=== PATIENT | female | born 1950 | race American Indian/Alaskan Native ===

== ENCOUNTER 2017-05-20 10:33 | Inpatient (IN) | payer OTHER ==
[2017-05-20 11:29] LABS: Urine Drugs of Abuse Note Disclamer
[2017-05-20 11:42] LABS: Bilirubin,Urine NEG (Negative); Blood,Urine NEG (Negative); Ketones,Urine NEG (Negative); Leukocyte Esterase,Urine NEG (Negative); Mucus,Urine 2+ /HPF; Nitrite,Urine NEG (Negative)
--- NOTE | 2017-05-20 11:53 | Emergency Department Report ---
HPI - General Chief Complaint: Altered Mental Status Time Seen by Provider: 05/20/17 11:23 - HPI HPI: This is a 66-year-old [place] female who presents to the emergency department from alf after the patient was found unresponsive in her cell. There is some mention of seizure-like activity, however as far as we know it was unwitnessed. The patient is more awake but still altered and/or confused and therefore a poor historian. The patient had only been at the alf for one day, arriving yesterday, so there is not much past medical history known. She received 1 mg of Ativan at the alf for possible seizure. ED Past Medical Hx - Social History Smoking Status: Unknown if ever smoked Substance Use Type: Other - Medications Home Medications: Home Medications Medication Instructions Recorded Confirmed Last Taken Type Aspirin [Aspirin BABY CHEW TAB] 81 mg PO QDAY 05/20/17 05/20/17 05/19/17 History Hydrochlorothiazide 12.5 mg PO BID 05/20/17 05/20/17 05/19/17 History ED Review of Systems ROS: Stated complaint: SEIZURE Other details as noted in HPI Comment: Unobtainable due to pts medical conditions Physical Exam - Physical Exam Vital Signs: Vital Signs 05/20/17 10:45 Temperature 97.7 F Pulse Rate 74 Respiratory 21 Rate Blood Pressure 129/83 Blood Pressure 129/83 [Right] O2 Sat by Pulse 100 Oximetry Physical Exam: GENERAL: The patient is well-developed well-nourished. HENT: Normocephalic. Atraumatic. Patient has moist mucous membranes. EYES: Extraocular motions are intact. Pupils equal reactive to light bilaterally. No nystagmus. NECK: Supple. Trachea is midline. CHEST/LUNGS: Clear to auscultation. There is no respiratory distress noted. HEART/CARDIOVASCULAR: Regular. There is no tachycardia. There is no gallop rub or murmur. ABDOMEN: Abdomen is soft, nontender. Patient has normal bowel sounds. There is no abdominal distention. SKIN: Skin is warm and dry. NEURO: The patient is awake but still despite some confusion. Currently a AAO [address] but not time. Follows commands and tries to be cooperative. No slurred speech. No facial assymetry. No pronator drift. MUSCULOSKELETAL: There is no tenderness or deformity. There is no limitation range of motion. There is no evidence of acute injury. ED Course Vital Signs 05/20/17 10:45 Temperature 97.7 F Pulse Rate 74 Respiratory 21 Rate Blood Pressure 129/83 Blood Pressure 129/83 [Right] O2 Sat by Pulse 100 Oximetry ED Medical Decision Making - Lab Data Result diagrams: 05/20/17 11:47 05/20/17 11:47 - EKG Data -: EKG Interpreted by Me EKG shows normal: sinus rhythm, axis, intervals, QRS complexes (LVH), ST-T waves (T-wave inversions throughout the lateral leads) Rate: normal - EKG Data When compared to previous EKG there are: previous EKG unavailable Interpretation: other (sinus rhythm, LVH, T-wave inversions throughout the lateral leads, no ST elevation WI) - Radiology Data Radiology results: report reviewed CT HEAD WITHOUT CONTRAST: 05/20/17 10:33:00 CLINICAL: Altered mental status.. TECHNIQUE: 2.5-mm noncontrast scans. COMPARISON:None FINDINGS: The ventricles and sulci are slightly large for age.Extensive bilateral periventricular and subcortical white matter hypodensities. Bilateral chronic basal ganglia lacunar infarcts. Focal encephalomalacia in the left posterior parietal lobe. No suspicious hypodensity. No mass or mass effect. No hemorrhage, edema or extra-axial collection. The sinuses are clear. Normal orbits and soft tissues. The calvarium and skull base are intact. IMPRESSION: Chronic infarcts and extensive chronic white matter microangiopathy. No evidence of acute/subacute infarct or hemorrhage. Transcribed By: REF Dictated By: MCKAYLA PEGUERO MD Electronically Authenticated By: MCKAYLA PEGUERO MD Signed Date/Time: 05/20/17 1200 - Medical Decision Making The patient presented altered but over the ED course has become more responsive. At first she was unable to give me the year and even appeared to be confused by the question but prior to admission she is able to tell me that the year is 2017. However she still does not appear to be fully back at baseline. This all could be consistent with a seizure and a postictal state but there was no witnessed seizure activity. Nonetheless the patient was covered with a gram of Keppra. It also could be a possible CVA versus TIA. However the patient would not be a TPA candidate as she does show some improvement and confusion would be the only neurological deficit found. The patient will be admitted to the hospital for further evaluation and treatment and has been accepted for admission by the hospitalist, Natali. - Differential Diagnosis Seizure, TIA, CVA, Substance abuse Critical Care Time: No Critical care attestation.: If time is entered above; I have spent that time in minutes in the direct care of this critically ill patient, excluding procedure time. ED Disposition Clinical Impression: Unresponsive episode Altered mental status Qualifiers: Altered mental status type: unspecified Qualified Code(s): R41.82 - Altered mental status, unspecified Disposition: DC-09 OP ADMIT IP TO THIS HOSP Is pt being admited?: Yes Condition: Stable Time of Disposition: 15:49
--- NOTE | 2017-05-20 12:06 | Cat Scan Report ---
CT HEAD WITHOUT CONTRAST: 05/20/17 10:33:00 CLINICAL: Altered mental status.. TECHNIQUE: 2.5-mm noncontrast scans. COMPARISON:None FINDINGS: The ventricles and sulci are slightly large for age.Extensive bilateral periventricular and subcortical white matter hypodensities. Bilateral chronic basal ganglia lacunar infarcts. Focal encephalomalacia in the left posterior parietal lobe. No suspicious hypodensity. No mass or mass effect. No hemorrhage, edema or extra-axial collection. The sinuses are clear. Normal orbits and soft tissues. The calvarium and skull base are intact. IMPRESSION: Chronic infarcts and extensive chronic white matter microangiopathy. No evidence of acute/subacute infarct or hemorrhage.
[2017-05-20 12:25] LABS: Alanine Aminotransferase 9 units/L (7-56); Albumin 4.5 g/dL (3.9-5); Albumin/Globulin Ratio 1.1 %; Alkaline Phosphatase 57 units/L (35-129); Anion Gap 20 mmol/L; BUN/Creatinine Ratio 21; Blood Urea Nitrogen 15 mg/dL (7-17); Calcium 9.7 mg/dL (8.4-10.2); Carbon Dioxide 26 mmol/L (22-30); Chloride 99.7 mmol/L (98-107); Glucose 106 mg/dL (65-100); Sodium 142 mmol/L (137-145); Total Protein 8.6 g/dL (6.3-8.2)
[2017-05-20 12:37] LABS: Basophils % (Auto) 0.7 % (0.0-1.8); Eosinophils % (Auto) 0.2 % (0.0-4.3); Hematocrit 44.6 % (30.3-42.9); Hemoglobin 14.2 gm/dl (10.1-14.3); Mean Corpuscular HGB Conc 32 % (30-34); Mean Corpuscular Hemoglobin 27 pg (28-32); Mean Corpuscular Volume 84 fl (79-97); Platelet Count 240 K/mm3 (140-440); Red Blood Count 5.29 M/mm3 (3.65-5.03); Red Cell Distribution Width 13.6 % (13.2-15.2); White Blood Count 7.3 K/mm3 (4.5-11.0)
[2017-05-20] MEDS ORDERED: KEPPRA 1,000 MG/NS 0.75% 100ML 1,000 MG/100 ML BAG IV ONE (13:03)
[2017-05-20] MEDS ORDERED: ZOFRAN IV PRN (14:24)
[2017-05-20] MEDS ORDERED: TYLENOL PO PRN (14:25)
[2017-05-20] MEDS ORDERED: ATIVAN IV PRN (14:30)
[2017-05-20] MEDS ORDERED: NACL 0.9% 1000 ML 1,000 ML IV SCH (15:00)
--- NOTE | 2017-05-20 15:39 | History and Physical Report ---
CHIEF COMPLAINT: Change in mental status. HISTORY OF PRESENT ILLNESS: The patient is a 66-year-old female brought in from halfway after he was found unresponsive. There was a history of seizure-like activity; however, there was no definite witness to confirm that. The patient could not give any good history because of that change in mental status. There was no history of chest pain, shortness of breath, fever, nausea or vomiting prior to the unresponsiveness. The patient was brought into the Emergency Room still confused. PAST MEDICAL HISTORY: Pertinent for hypertension. There is no past medical history of any form of seizure disorder. PAST SURGICAL HISTORY: Not well defined. FAMILY HISTORY: Noncontributory. SOCIAL HISTORY: The patient is in halfway. Does not smoke, does not drink alcohol and does not use illicit drugs. MEDICATIONS: The patient is on hydrochlorothiazide 12.5 mg by mouth twice daily and aspirin 81 mg by mouth daily. ALLERGIES: There are no known drug allergies. REVIEW OF SYSTEMS: CONSTITUTIONAL: No fever, no chills. No diaphoresis. HEENT: There is no headache or sore throat. CARDIOVASCULAR SYSTEM: There is no chest pain or orthopnea. RESPIRATORY: There is no shortness of breath or cough. GASTROINTESTINAL SYSTEM: There is no nausea, no vomiting, no abdominal pain, diarrhea or constipation. NEUROLOGICAL SYSTEM: Altered mental status noted. Confusion noted. Questionable seizure activity noted. MUSCULOSKELETAL SYSTEM: There is no joint pain or swelling. DERMATOLOGICAL SYSTEM: There is no skin rash or itching. GENITOURINARY: There is no dysuria, hematuria, or flank pain. Rest of system review is normal. PHYSICAL EXAMINATION: GENERAL: At the time of exam, the patient was found to be alert, oriented to person, still confused, not in acute distress. VITAL SIGNS: Shows temperature of 97.7 degrees Fahrenheit, pulse of 74, respirations 21, blood pressure 129/83 and O2 sat of 99% on room air. HEENT: Showed pupils to be equal, round, reactive to light and accommodation. Extraocular muscles are intact. NECK: Supple with no JVD or carotid bruit. CARDIOVASCULAR SYSTEM: Show first and second heart sounds with no gallops or murmurs. RESPIRATORY: Showed good air entry on both sides of the lungs with no abnormal breath sounds. GASTROINTESTINAL SYSTEM: Shows abdomen to be full, soft, nontender with no organomegaly or rigidity. NEUROLOGICAL: Shows focal deficit. MUSCULOSKELETAL SYSTEM: Shows no joint swelling or tenderness. DERMATOLOGIC: Shows no skin rash. GENITOURINARY: Showing no costovertebral angle tenderness. PERTINENT LABORATORY AND IMAGING STUDIES: The patient has CBC done with normal white count, normal hemoglobin and slightly elevated hematocrit of 44.6. CBC differential showed elevated segmented neutrophil of 80.9%. The patient's chemistry was unremarkable. Urinalysis came back normal and unremarkable. Urine drug screen was unremarkable. IMAGING STUDIES: The patient had a CT of the head done without contrast that shows chronic infarcts and extensive chronic white matter microangiopathy with no evidence of acute/subacute infarct or hemorrhage. DIAGNOSIS: Altered mental status with questionable seizure. PLAN: The patient will be admitted to medical floor on telemetry. We will have cardiac enzymes checked q. 6 hours x 2 more levels. The patient will have MRI of the brain without contrast done today or tomorrow and will also have i bilateral carotid Doppler done today or tomorrow. The patient will be on oxygen by nasal cannula at 2 liters per minute. DVT prophylaxis will be through sequential compressive device until the result of the MRI is known. The patient will be on IV normal saline at 75 mL an hour, will be on Keppra 500 mg by mouth twice daily. The patient will also be on IV Ativan 1 mg every 2 hours as needed for seizure attack and will be on Tylenol 650 mg by mouth every fever, headache and aspirin 325 mg by mouth daily. The patient will also be on Zofran 4 mg IV every 6 hours for nausea and vomiting and will be on her home medication as shown in medication reconciliation section. The patient will have Neurology consult when available. JOB# [id number] OCN/NTS
[2017-05-20 16:59] LABS: Creatine Kinase 145 units/L (30-135); Creatine Kinase MB 1.2 ng/mL (0.0-4.0)
[2017-05-20] MEDS ORDERED: NON-FORMULARY (Hydrochlorothiazide [Hydrochlorothiazide] 12.5 MG) PO SCH (22:00)
[2017-05-20] MEDS: KEPPRA PO SCH (23:18)
[2017-05-20] MEDS: HCTZ PO SCH (23:18)
[2017-05-21 02:49] LABS: Creatine Kinase 110 units/L (30-135); Creatine Kinase MB < 1.0 ng/mL (0.0-4.0)
--- NOTE | 2017-05-21 08:35 | Progress Note ---
Assessment and Plan Assessment and plan: --Metabolic encephalopathy; multifactorial, closely monitor --Possible seizures; seizure precautions, Ativan as needed, antipeptic medications, urology consultation, negative workup --Possible TIA; neuro workup is in progress, physical therapy occupational therapy --History of CVA in the past[reported by the patient] supportive care and physical therapy as needed -- DVT prophylaxis with Lovenox If neuro workup is negative and patient is stable, can be discharged home tomorrow History Interval history: Patient seen and examined medical records reviewed Admitted with questionable seizure, no new seizure episode Alert awake oriented 3 Vital signs are stable Neuro workup is in progress Hospitalist Physical - Constitutional Vitals: Temp Pulse Resp BP Pulse Ox 98.3 F 82 20 141/85 96 05/21/17 06:05 05/21/17 06:05 05/21/17 06:05 05/21/17 06:05 05/21/17 06:05 General appearance: Present: no acute distress, well-nourished - EENT Eyes: Present: PERRL, EOM intact - Neck Neck: Present: supple, normal ROM - Respiratory Respiratory effort: normal Respiratory: negative: diminished, rales, rhonchi, wheezing - Cardiovascular Rhythm: regular Heart Sounds: Present: S1 & S2 - Extremities Extremities: no ischemia, No edema - Abdominal General gastrointestinal: soft, non-tender, non-distended, normal bowel sounds - Integumentary Integumentary: Present: clear, warm - Psychiatric Psychiatric: appropriate mood/affect, cooperative - Neurologic Neurologic: CNII-XII intact, moves all extremities Results - Labs CBC & Chem 7: 05/20/17 11:47 05/20/17 11:47 Labs: Laboratory Last Values WBC 7.3 K/mm3 (4.5-11.0) 05/20/17 11:47 RBC 5.29 M/mm3 (3.65-5.03) H 05/20/17 11:47 Hgb 14.2 gm/dl (10.1-14.3) 05/20/17 11:47 Hct 44.6 % (30.3-42.9) H 05/20/17 11:47 MCV 84 fl (79-97) 05/20/17 11:47 MCH 27 pg (28-32) L 05/20/17 11:47 MCHC 32 % (30-34) 05/20/17 11:47 RDW 13.6 % (13.2-15.2) 05/20/17 11:47 Plt Count 240 K/mm3 (140-440) 05/20/17 11:47 Lymph % (Auto) 15.0 % (13.4-35.0) 05/20/17 11:47 [place] % (Auto) 3.2 % (0.0-7.3) 05/20/17 11:47 Eos % (Auto) 0.2 % (0.0-4.3) 05/20/17 11:47 Baso % (Auto) 0.7 % (0.0-1.8) 05/20/17 11:47 Lymph # 1.1 K/mm3 (1.2-5.4) L 05/20/17 11:47 [place] # 0.2 K/mm3 (0.0-0.8) 05/20/17 11:47 Eos # 0.0 K/mm3 (0.0-0.4) 05/20/17 11:47 Baso # 0.1 K/mm3 (0.0-0.1) 05/20/17 11:47 Seg Neutrophils % 80.9 % (40.0-70.0) H 05/20/17 11:47 Seg Neutrophils # 5.9 K/mm3 (1.8-7.7) 05/20/17 11:47 Sodium 142 mmol/L (137-145) 05/20/17 11:47 Potassium 4.0 mmol/L (3.6-5.0) 05/20/17 11:47 Chloride 99.7 mmol/L (98-107) 05/20/17 11:47 Carbon Dioxide 26 mmol/L (22-30) 05/20/17 11:47 Anion Gap 20 mmol/L 05/20/17 11:47 BUN 15 mg/dL (7-17) 05/20/17 11:47 Creatinine 0.7 mg/dL (0.7-1.2) 05/20/17 11:47 Estimated GFR > 60 ml/min 05/20/17 11:47 BUN/Creatinine Ratio 21 % 05/20/17 11:47 Glucose 106 mg/dL (65-100) H 05/20/17 11:47 Lactic Acid 1.90 mmol/L (0.7-2.0) 05/20/17 16:11 Calcium 9.7 mg/dL (8.4-10.2) 05/20/17 11:47 Magnesium 2.30 mg/dL (1.7-2.3) 05/20/17 11:47 Total Bilirubin 0.70 mg/dL (0.1-1.2) 05/20/17 11:47 AST 14 units/L (5-40) 05/20/17 11:47 ALT 9 units/L (7-56) 05/20/17 11:47 Alkaline Phosphatase 57 units/L (35-129) 05/20/17 11:47 Total Creatine Kinase 110 units/L (30-135) 05/21/17 02:03 CK-MB (CK-2) < 1.0 ng/mL (0.0-4.0) 05/21/17 02:03 CK-MB (CK-2) Rel Index 0.9 (0-4) 05/21/17 02:03 Troponin T < 0.010 ng/mL (0.00-0.029) 05/21/17 02:03 Total Protein 8.6 g/dL (6.3-8.2) H 05/20/17 11:47 Albumin 4.5 g/dL (3.9-5) 05/20/17 11:47 Albumin/Globulin Ratio 1.1 % 05/20/17 11:47 TSH 0.502 mlU/mL (0.270-4.200) 05/20/17 11:47 Urine Color Yellow (Yellow) 05/20/17 11:21 Urine Turbidity Clear (Clear) 05/20/17 11:21 Urine pH 5.0 (5.0-7.0) 05/20/17 11:21 Ur Specific [place] 1.026 (1.003-1.030) 05/20/17 11:21 Urine Protein 100 mg/dl mg/dL (Negative) 05/20/17 11:21 Urine Glucose (UA) Neg mg/dL (Negative) 05/20/17 11:21 Urine Ketones Neg mg/dL (Negative) 05/20/17 11:21 Urine Blood Neg (Negative) 05/20/17 11:21 Urine Nitrite Neg (Negative) 05/20/17 11:21 Urine Bilirubin Neg (Negative) 05/20/17 11:21 Urine Urobilinogen 2.0 mg/dL (<2.0) 05/20/17 11:21 Ur Leukocyte Esterase Neg (Negative) 05/20/17 11:21 Urine WBC (Auto) 1.0 /HPF (0.0-6.0) 05/20/17 11:21 Urine RBC (Auto) 1.0 /HPF (0.0-6.0) 05/20/17 11:21 U Epithel Cells (Auto) < 1.0 /HPF (0-13.0) 05/20/17 11:21 Urine Mucus 2+ /HPF 05/20/17 11:21 Salicylates < 0.3 mg/dL (2.8-20.0) L 05/20/17 11:47 Urine Opiates Screen Presumptive negative 05/20/17 11:21 Urine Methadone Screen Presumptive negative 05/20/17 11:21 Acetaminophen < 15.0 ug/mL (10.0-30.0) 05/20/17 11:47 Ur Barbiturates Screen Presumptive negative 05/20/17 11:21 Ur Phencyclidine Scrn Presumptive negative 05/20/17 11:21 Ur Amphetamines Screen Presumptive negative 05/20/17 11:21 U Benzodiazepines Scrn Presumptive negative 05/20/17 11:21 Urine Cocaine Screen Presumptive negative 05/20/17 11:21 U Marijuana (THC) Screen Presumptive negative 05/20/17 11:21 Drugs of Abuse Note Disclamer 05/20/17 11:21 Plasma/Serum Alcohol < 0.01 gm% (0-0.07) 05/20/17 11:47
[2017-05-21] MEDS: HCTZ PO SCH ×2 (10:56→21:33)
[2017-05-21] MEDS: KEPPRA PO SCH ×2 (10:56→21:33)
[2017-05-21] MEDS: ASPIRIN PO SCH (10:56)
--- NOTE | 2017-05-21 13:39 | Consultation ---
History of Present Illness Consult date: 05/21/17 History of present illness: went over the CT of the head and shows extensive white matter changes and old lacunar strokes this certainly may well have been seizures agree with work up advise check ECHO AND cAROTID U/S TO R/O tia Medications and Allergies Allergies Allergy/AdvReac Type Severity Reaction Status Date / Time shellfish derived Allergy Unknown Verified 05/21/17 01:01 Home Medications Medication Instructions Recorded Confirmed Last Taken Type Aspirin [Aspirin BABY CHEW TAB] 81 mg PO QDAY 05/20/17 05/20/17 05/19/17 History Hydrochlorothiazide 12.5 mg PO BID 05/20/17 05/20/17 05/19/17 History Active Meds: Active Medications Acetaminophen (Tylenol) 650 mg PO Q4H PRN PRN Reason: For Pain/Fever/Headache Aspirin (Aspirin) 325 mg PO QDAY [facility] Last Admin: 05/21/17 10:56 Dose: 325 mg Hydrochlorothiazide (Hctz) 12.5 mg PO BID [facility] Last Admin: 05/21/17 10:56 Dose: 12.5 mg Sodium Chloride (Nacl 0.9% 1000 Ml) 1,000 mls @ 75 mls/hr IV DIRECT [facility] Last Admin: 05/20/17 19:00 Dose: 75 mls/hr Levetiracetam (Keppra) 500 mg PO BID [facility] Last Admin: 05/21/17 10:56 Dose: 500 mg Lorazepam (Ativan) 1 mg IV Q2H PRN PRN Reason: Seizures Ondansetron HCl (Zofran) 4 mg IV Q6H PRN PRN Reason: Nausea And Vomiting Physical Examination - Vital Signs Vital Signs: Vital Signs Temp Pulse Resp BP Pulse Ox 97.7 F 74 14 129/83 100 05/20/17 10:45 05/20/17 10:45 05/20/17 10:45 05/20/17 10:45 05/20/17 10:45 Results - Laboratory Findings CBC and BMP: 05/20/17 11:47 05/20/17 11:47 Abnormal Lab Findings: Abnormal Labs 05/20/17 05/20/17 05/20/17 11:47 11:47 11:47 RBC 5.29 H Hct 44.6 H MCH 27 L Lymph # 1.1 L Seg Neutrophils % 80.9 H Glucose 106 H Total Creatine Kinase Total Protein 8.6 H Salicylates < 0.3 L 05/20/17 16:11 RBC Hct MCH Lymph # Seg Neutrophils % Glucose Total Creatine Kinase 145 H Total Protein Salicylates
[2017-05-22] MEDS: HCTZ PO SCH ×2 (09:33→22:06)
[2017-05-22] MEDS: KEPPRA PO SCH ×2 (09:33→22:06)
[2017-05-22] MEDS: ASPIRIN PO SCH (09:33)
--- NOTE | 2017-05-22 11:01 | Magnetic Resonance Report ---
MRI BRAIN WITHOUT CONTRAST: 05/22/17 CLINICAL: Altered mental status. TECHNIQUE: Axial diffusion, T1, T2, FLAIR, gradient echo T2*, and sagittal T1 sequences on a 1.5 Genoveva magnet. FINDINGS: The ventricles and sulci are enlarged for age. Left posterior parietal encephalomalacia. No restricted diffusion. Extensive bilateral periventricular and subcortical white matter hyperintensities on FLAIR and T2. Several bilateral chronic basal ganglia lacunar infarcts. No mass or mass effect. No hemorrhage, edema or extra-axial collection. Normal pituitary and optic chiasm. The brainstem and cerebellum are normal. Intact vascular flow voids. Normal sinuses. The orbits, and soft tissues are normal. Normal calvarium and skull base. IMPRESSION: No evidence of acute/subacute infarct or hemorrhage. Chronic left posterior parietal infarct and bilateral chronic basal ganglia lacunar infarcts. Global cortical atrophy and extensive chronic white matter micro-angiopathy.
--- NOTE | 2017-05-22 11:43 | Progress Note ---
Assessment and Plan Assessment and plan: Patient is a 66 years old with past medical history of seizure , hypertension, recurrent UTI and schizophrenia who presents to the emergency department for altered mental status and agitation. In the Emergency Department patient found to have septic due to UTI. Acute encephalopathy Improved patient currently sleepy and lethargic but she knows she is in the hospital. Most likely due to schizophrenia VS urinary tract infection Ct of the head negative treat underline cause Sepsis due to urinary tract infection Blood cultures collected prior to antibiotic Follow cultures Continue empiric IV Rocephin Continue IV fluid hydration Supportive care Acute pyelonephritis Renal US ordered Urine culture ordered Continue empiric IV Rocephin IV fluid hydration Leukocytosis Secondary to Acute pyelonephritis Closely monitor Seizure disordered continue home anticonvulsants Acute schizophrenia Patient agitated; on 10:13 and sitter at bedside Mental health consult DVT prophylaxis Lovenox History Interval history: Patients very sleep and lethargic, but denies having pain or discomfort. Labs and nursing labs reviewed. Hospitalist Physical - Constitutional Vitals: Temp Pulse Resp BP Pulse Ox 98.1 F 73 16 140/90 96 05/22/17 04:52 05/22/17 04:52 05/22/17 04:52 05/22/17 04:52 05/22/17 08:28 General appearance: Present: no acute distress, well-nourished, other (confused ) - EENT Eyes: Present: PERRL ENT: hearing intact - Neck Neck: Present: supple - Respiratory Respiratory effort: normal Respiratory: bilateral: CTA - Cardiovascular Rhythm: regular Heart Sounds: Present: S1 & S2 - Abdominal General gastrointestinal: soft, non-tender - Integumentary Integumentary: Present: clear, warm, dry - Psychiatric Psychiatric: other (Sleepy and very lethargic ) - Neurologic Neurologic: moves all extremities - Allied Health Allied health notes reviewed: nursing Results - Labs CBC & Chem 7: 05/20/17 11:47 05/20/17 11:47 Labs: Laboratory Last Values WBC 7.3 K/mm3 (4.5-11.0) 05/20/17 11:47 RBC 5.29 M/mm3 (3.65-5.03) H 05/20/17 11:47 Hgb 14.2 gm/dl (10.1-14.3) 05/20/17 11:47 Hct 44.6 % (30.3-42.9) H 05/20/17 11:47 MCV 84 fl (79-97) 05/20/17 11:47 MCH 27 pg (28-32) L 05/20/17 11:47 MCHC 32 % (30-34) 05/20/17 11:47 RDW 13.6 % (13.2-15.2) 05/20/17 11:47 Plt Count 240 K/mm3 (140-440) 05/20/17 11:47 Lymph % (Auto) 15.0 % (13.4-35.0) 05/20/17 11:47 [place] % (Auto) 3.2 % (0.0-7.3) 05/20/17 11:47 Eos % (Auto) 0.2 % (0.0-4.3) 05/20/17 11:47 Baso % (Auto) 0.7 % (0.0-1.8) 05/20/17 11:47 Lymph # 1.1 K/mm3 (1.2-5.4) L 05/20/17 11:47 [place] # 0.2 K/mm3 (0.0-0.8) 05/20/17 11:47 Eos # 0.0 K/mm3 (0.0-0.4) 05/20/17 11:47 Baso # 0.1 K/mm3 (0.0-0.1) 05/20/17 11:47 Seg Neutrophils % 80.9 % (40.0-70.0) H 05/20/17 11:47 Seg Neutrophils # 5.9 K/mm3 (1.8-7.7) 05/20/17 11:47 Sodium 142 mmol/L (137-145) 05/20/17 11:47 Potassium 4.0 mmol/L (3.6-5.0) 05/20/17 11:47 Chloride 99.7 mmol/L (98-107) 05/20/17 11:47 Carbon Dioxide 26 mmol/L (22-30) 05/20/17 11:47 Anion Gap 20 mmol/L 05/20/17 11:47 BUN 15 mg/dL (7-17) 05/20/17 11:47 Creatinine 0.7 mg/dL (0.7-1.2) 05/20/17 11:47 Estimated GFR > 60 ml/min 05/20/17 11:47 BUN/Creatinine Ratio 21 % 05/20/17 11:47 Glucose 106 mg/dL (65-100) H 05/20/17 11:47 POC Glucose 94 (70-105) 05/22/17 11:38 Lactic Acid 1.90 mmol/L (0.7-2.0) 05/20/17 16:11 Calcium 9.7 mg/dL (8.4-10.2) 05/20/17 11:47 Magnesium 2.30 mg/dL (1.7-2.3) 05/20/17 11:47 Total Bilirubin 0.70 mg/dL (0.1-1.2) 05/20/17 11:47 AST 14 units/L (5-40) 05/20/17 11:47 ALT 9 units/L (7-56) 05/20/17 11:47 Alkaline Phosphatase 57 units/L (35-129) 05/20/17 11:47 Total Creatine Kinase 110 units/L (30-135) 05/21/17 02:03 CK-MB (CK-2) < 1.0 ng/mL (0.0-4.0) 05/21/17 02:03 CK-MB (CK-2) Rel Index 0.9 (0-4) 05/21/17 02:03 Troponin T < 0.010 ng/mL (0.00-0.029) 05/21/17 02:03 Total Protein 8.6 g/dL (6.3-8.2) H 05/20/17 11:47 Albumin 4.5 g/dL (3.9-5) 05/20/17 11:47 Albumin/Globulin Ratio 1.1 % 05/20/17 11:47 TSH 0.502 mlU/mL (0.270-4.200) 05/20/17 11:47 Urine Color Yellow (Yellow) 05/20/17 11:21 Urine Turbidity Clear (Clear) 05/20/17 11:21 Urine pH 5.0 (5.0-7.0) 05/20/17 11:21 Ur Specific [place] 1.026 (1.003-1.030) 05/20/17 11:21 Urine Protein 100 mg/dl mg/dL (Negative) 05/20/17 11:21 Urine Glucose (UA) Neg mg/dL (Negative) 05/20/17 11:21 Urine Ketones Neg mg/dL (Negative) 05/20/17 11:21 Urine Blood Neg (Negative) 05/20/17 11:21 Urine Nitrite Neg (Negative) 05/20/17 11:21 Urine Bilirubin Neg (Negative) 05/20/17 11:21 Urine Urobilinogen 2.0 mg/dL (<2.0) 05/20/17 11:21 Ur Leukocyte Esterase Neg (Negative) 05/20/17 11:21 Urine WBC (Auto) 1.0 /HPF (0.0-6.0) 05/20/17 11:21 Urine RBC (Auto) 1.0 /HPF (0.0-6.0) 05/20/17 11:21 U Epithel Cells (Auto) < 1.0 /HPF (0-13.0) 05/20/17 11:21 Urine Mucus 2+ /HPF 05/20/17 11:21 Salicylates < 0.3 mg/dL (2.8-20.0) L 05/20/17 11:47 Urine Opiates Screen Presumptive negative 05/20/17 11:21 Urine Methadone Screen Presumptive negative 05/20/17 11:21 Acetaminophen < 15.0 ug/mL (10.0-30.0) 05/20/17 11:47 Ur Barbiturates Screen Presumptive negative 05/20/17 11:21 Ur Phencyclidine Scrn Presumptive negative 05/20/17 11:21 Ur Amphetamines Screen Presumptive negative 05/20/17 11:21 U Benzodiazepines Scrn Presumptive negative 05/20/17 11:21 Urine Cocaine Screen Presumptive negative 05/20/17 11:21 U Marijuana (THC) Screen Presumptive negative 05/20/17 11:21 Drugs of Abuse Note Disclamer 05/20/17 11:21 Plasma/Serum Alcohol < 0.01 gm% (0-0.07) 05/20/17 11:47
--- NOTE | 2017-05-22 17:02 | Progress Note ---
Assessment and Plan Assessment and plan: -- seizures; seizure precautions, Ativan as needed, increase Keppra 1000 mg twice a day, neurology following negative MRI --Metabolic encephalopathy; multifactorial, resolved --Possible TIA; neuro workup negative so far, --History of CVA in the past[reported by the patient] supportive care and physical therapy as needed -- DVT prophylaxis with Lovenox If neuro workup is negative and patient is stable, can be discharged home tomorrow Possible Discharge tomorrow if stable History Interval history: Patient seen and examined Had an episode of witnessed seizure in MRI unit Now patient is alert and awake Hospitalist Physical - Constitutional Vitals: Temp Pulse Resp BP Pulse Ox 98.1 F 73 16 140/90 96 05/22/17 04:52 05/22/17 04:52 05/22/17 04:52 05/22/17 04:52 05/22/17 08:28 General appearance: Present: no acute distress, well-nourished, other (confused ) - EENT Eyes: Present: PERRL, EOM intact - Neck Neck: Present: supple, normal ROM - Respiratory Respiratory effort: normal Respiratory: bilateral: diminished, negative: rales, rhonchi, wheezing - Cardiovascular Rhythm: regular Heart Sounds: Present: S1 & S2 - Extremities Extremities: no ischemia, No edema - Abdominal General gastrointestinal: soft, non-tender, non-distended, normal bowel sounds - Integumentary Integumentary: Present: clear, warm - Psychiatric Psychiatric: appropriate mood/affect, cooperative - Neurologic Neurologic: CNII-XII intact, moves all extremities Results - Labs CBC & Chem 7: 05/20/17 11:47 05/20/17 11:47 Labs: Laboratory Last Values WBC 7.3 K/mm3 (4.5-11.0) 05/20/17 11:47 RBC 5.29 M/mm3 (3.65-5.03) H 05/20/17 11:47 Hgb 14.2 gm/dl (10.1-14.3) 05/20/17 11:47 Hct 44.6 % (30.3-42.9) H 05/20/17 11:47 MCV 84 fl (79-97) 05/20/17 11:47 MCH 27 pg (28-32) L 05/20/17 11:47 MCHC 32 % (30-34) 05/20/17 11:47 RDW 13.6 % (13.2-15.2) 05/20/17 11:47 Plt Count 240 K/mm3 (140-440) 05/20/17 11:47 Lymph % (Auto) 15.0 % (13.4-35.0) 05/20/17 11:47 Barbour % (Auto) 3.2 % (0.0-7.3) 05/20/17 11:47 Eos % (Auto) 0.2 % (0.0-4.3) 05/20/17 11:47 Baso % (Auto) 0.7 % (0.0-1.8) 05/20/17 11:47 Lymph # 1.1 K/mm3 (1.2-5.4) L 05/20/17 11:47 Barbour # 0.2 K/mm3 (0.0-0.8) 05/20/17 11:47 Eos # 0.0 K/mm3 (0.0-0.4) 05/20/17 11:47 Baso # 0.1 K/mm3 (0.0-0.1) 05/20/17 11:47 Seg Neutrophils % 80.9 % (40.0-70.0) H 05/20/17 11:47 Seg Neutrophils # 5.9 K/mm3 (1.8-7.7) 05/20/17 11:47 Sodium 142 mmol/L (137-145) 05/20/17 11:47 Potassium 4.0 mmol/L (3.6-5.0) 05/20/17 11:47 Chloride 99.7 mmol/L (98-107) 05/20/17 11:47 Carbon Dioxide 26 mmol/L (22-30) 05/20/17 11:47 Anion Gap 20 mmol/L 05/20/17 11:47 BUN 15 mg/dL (7-17) 05/20/17 11:47 Creatinine 0.7 mg/dL (0.7-1.2) 05/20/17 11:47 Estimated GFR > 60 ml/min 05/20/17 11:47 BUN/Creatinine Ratio 21 % 05/20/17 11:47 Glucose 106 mg/dL (65-100) H 05/20/17 11:47 POC Glucose 94 (70-105) 05/22/17 11:38 Lactic Acid 1.90 mmol/L (0.7-2.0) 05/20/17 16:11 Calcium 9.7 mg/dL (8.4-10.2) 05/20/17 11:47 Magnesium 2.30 mg/dL (1.7-2.3) 05/20/17 11:47 Total Bilirubin 0.70 mg/dL (0.1-1.2) 05/20/17 11:47 AST 14 units/L (5-40) 05/20/17 11:47 ALT 9 units/L (7-56) 05/20/17 11:47 Alkaline Phosphatase 57 units/L (35-129) 05/20/17 11:47 Total Creatine Kinase 110 units/L (30-135) 05/21/17 02:03 CK-MB (CK-2) < 1.0 ng/mL (0.0-4.0) 05/21/17 02:03 CK-MB (CK-2) Rel Index 0.9 (0-4) 05/21/17 02:03 Troponin T < 0.010 ng/mL (0.00-0.029) 05/21/17 02:03 Total Protein 8.6 g/dL (6.3-8.2) H 05/20/17 11:47 Albumin 4.5 g/dL (3.9-5) 05/20/17 11:47 Albumin/Globulin Ratio 1.1 % 05/20/17 11:47 TSH 0.502 mlU/mL (0.270-4.200) 05/20/17 11:47 Urine Color Yellow (Yellow) 05/20/17 11:21 Urine Turbidity Clear (Clear) 05/20/17 11:21 Urine pH 5.0 (5.0-7.0) 05/20/17 11:21 Ur Specific Nicholls 1.026 (1.003-1.030) 05/20/17 11:21 Urine Protein 100 mg/dl mg/dL (Negative) 05/20/17 11:21 Urine Glucose (UA) Neg mg/dL (Negative) 05/20/17 11:21 Urine Ketones Neg mg/dL (Negative) 05/20/17 11:21 Urine Blood Neg (Negative) 05/20/17 11:21 Urine Nitrite Neg (Negative) 05/20/17 11:21 Urine Bilirubin Neg (Negative) 05/20/17 11:21 Urine Urobilinogen 2.0 mg/dL (<2.0) 05/20/17 11:21 Ur Leukocyte Esterase Neg (Negative) 05/20/17 11:21 Urine WBC (Auto) 1.0 /HPF (0.0-6.0) 05/20/17 11:21 Urine RBC (Auto) 1.0 /HPF (0.0-6.0) 05/20/17 11:21 U Epithel Cells (Auto) < 1.0 /HPF (0-13.0) 05/20/17 11:21 Urine Mucus 2+ /HPF 05/20/17 11:21 Salicylates < 0.3 mg/dL (2.8-20.0) L 05/20/17 11:47 Urine Opiates Screen Presumptive negative 05/20/17 11:21 Urine Methadone Screen Presumptive negative 05/20/17 11:21 Acetaminophen < 15.0 ug/mL (10.0-30.0) 05/20/17 11:47 Ur Barbiturates Screen Presumptive negative 05/20/17 11:21 Ur Phencyclidine Scrn Presumptive negative 05/20/17 11:21 Ur Amphetamines Screen Presumptive negative 05/20/17 11:21 U Benzodiazepines Scrn Presumptive negative 05/20/17 11:21 Urine Cocaine Screen Presumptive negative 05/20/17 11:21 U Marijuana (THC) Screen Presumptive negative 05/20/17 11:21 Drugs of Abuse Note Disclamer 05/20/17 11:21 Plasma/Serum Alcohol < 0.01 gm% (0-0.07) 05/20/17 11:47
[2017-05-23] MEDS: KEPPRA PO SCH (09:59)
[2017-05-23] MEDS: HCTZ PO SCH (09:59)
[2017-05-23] MEDS: ASPIRIN PO SCH (09:59)
--- NOTE | 2017-05-23 11:19 | Consultation ---
History of Present Illness Consult date: 05/23/17 History of present illness: patient seen and the BP's coming down.... saw the old stroke on MRI but no new stroke this explained to the patient Medications and Allergies Allergies Allergy/AdvReac Type Severity Reaction Status Date / Time shellfish derived Allergy Unknown Verified 05/21/17 01:01 Home Medications Medication Instructions Recorded Confirmed Last Taken Type Aspirin [Aspirin BABY CHEW TAB] 81 mg PO QDAY 05/20/17 05/20/17 05/19/17 History Hydrochlorothiazide 12.5 mg PO BID 05/20/17 05/20/17 05/19/17 History Active Meds: Active Medications Acetaminophen (Tylenol) 650 mg PO Q4H PRN PRN Reason: For Pain/Fever/Headache Last Admin: 05/21/17 20:33 Dose: 650 mg Aspirin (Aspirin) 325 mg PO QDAY [facility] Last Admin: 05/23/17 09:59 Dose: 325 mg Hydrochlorothiazide (Hctz) 12.5 mg PO BID [facility] Last Admin: 05/23/17 09:59 Dose: 12.5 mg Sodium Chloride (Nacl 0.9% 1000 Ml) 1,000 mls @ 75 mls/hr IV DIRECT [facility] Last Admin: 05/20/17 19:00 Dose: 75 mls/hr Levetiracetam (Keppra) 1,000 mg PO BID [facility] Last Admin: 05/23/17 09:59 Dose: 1,000 mg Lorazepam (Ativan) 1 mg IV Q2H PRN PRN Reason: Seizures Ondansetron HCl (Zofran) 4 mg IV Q6H PRN PRN Reason: Nausea And Vomiting Physical Examination - Vital Signs Vital Signs: Vital Signs Temp Pulse Resp BP Pulse Ox 97.7 F 74 14 129/83 100 05/20/17 10:45 05/20/17 10:45 05/20/17 10:45 05/20/17 10:45 05/20/17 10:45 Results - Laboratory Findings CBC and BMP: 05/20/17 11:47 05/20/17 11:47 Abnormal Lab Findings: Abnormal Labs 05/20/17 05/20/17 05/20/17 11:47 11:47 11:47 RBC 5.29 H Hct 44.6 H MCH 27 L Lymph # 1.1 L Seg Neutrophils % 80.9 H Glucose 106 H Total Creatine Kinase Total Protein 8.6 H Salicylates < 0.3 L 05/20/17 16:11 RBC Hct MCH Lymph # Seg Neutrophils % Glucose Total Creatine Kinase 145 H Total Protein Salicylates
--- NOTE | 2017-05-23 11:27 | Discharge Summary ---
Providers - Providers Date of Admission: 05/20/17 14:19 Date of discharge: 05/23/17 Attending physician: RADHA KNAPP 05/21/17 08:37 Consult to Physician [CONS] Routine Consulting Provider: MCKAYLA PISANO Reason For Exam: seizures Place consult to:: Dr. Pisano Notified:: Janet BAXTER Phone number called:: Was contact made?: Yes If yes, spoke with:: Michelle-Office Time called:: 09:05 Primary care physician: [employer] Hospitalization Reason for admission: Seizures Condition: Stable Pertinent studies: CT head without contrast MRI brain Carotid Doppler Hospital course: 66 yr old female pt was brought by the law enforcement officers with history of altered level of consciousness and questionable seizures activity Patient was admitted to the hospital symptomatically managed placed on seizure precautions started on antiepileptic medications, underwent extensive new to workup CT head without contrast, carotid Doppler, MRA of the brain Patient had one more episode of seizure during MRI, received Keppra and Ativan as needed throughout the hospital stay Symptoms significantly improved Neurology has evaluated the patient, agreed with the current management Today she is comfortable in bed no new complaints, vital signs are stable, patient is confused sometimes and talking rationally probably her baseline Cleared by neurology for discharge back to the care law enforcement officers, advised to follow with primary care physician, neurologist prior to scheduled At The time of discharge patient is hemodynamically and clinically stable Discharge diagnosis; -- seizures; seizure precautions, no driving or operating heavy machinery until cleared by PMD --Metabolic encephalopathy; multifactorial, resolved --Possible TIA; neuro workup negative so far, --History of CVA in the past Disposition: [id number]/[place]-[address] COURT/[employer]W [employer] Time spent for discharge: 32 Core Measure Documentation - Palliative Care Palliative Care/ Comfort Measures: Not Applicable - Core Measures Any of the following diagnoses?: none Exam - Constitutional Vitals: Temp Pulse Resp BP Pulse Ox 98.5 F 73 18 156/98 98 05/23/17 08:13 05/23/17 08:13 05/23/17 08:13 05/23/17 08:13 05/23/17 08:13 General appearance: Present: no acute distress, well-nourished - EENT Eyes: Present: PERRL, EOM intact - Neck Neck: Present: supple, normal ROM - Respiratory Respiratory effort: normal Respiratory: negative: rales, rhonchi, wheezing - Cardiovascular Rhythm: regular Heart Sounds: Present: S1 & S2 - Extremities Extremities: no ischemia, No edema - Abdominal General gastrointestinal: Present: soft, non-tender, non-distended, normal bowel sounds - Integumentary Integumentary: Present: clear - Musculoskeletal Musculoskeletal: strength equal bilaterally - Psychiatric Psychiatric: appropriate mood/affect - Neurologic Neurologic: moves all extremities Plan Activity: advance as tolerated, no driving until cleared by PCP, fall precautions, other (seizure precautions) Diet: regular Additional Instructions: If you have new episodes of seizure, go to emergency room immediately. No driving, no operating heavy machinery until cleared by primary care physician/neurology Follow up with: [facility] [Provider Group] - 3 Days PRIMARY CAREMD [Primary Care Provider] - 3-5 Days MCKAYLA PISANO MD [Staff Physician] - 7 Days Prescriptions: levETIRAcetam [Keppra TAB] 1,000 mg PO BID #60 tablet
--- NOTE | 2017-05-23 12:02 | Consultation ---
History of Present Illness Consult date: 05/23/17 History of present illness: I have cleared the patient for discharge the stroke is chronic and nothing acute likely had seizure can be discharged on keppra explained the above to the patient she has severe aphasia so that communication is problem Medications and Allergies Allergies Allergy/AdvReac Type Severity Reaction Status Date / Time shellfish derived Allergy Unknown Verified 05/21/17 01:01 Home Medications Medication Instructions Recorded Confirmed Last Taken Type Aspirin [Aspirin BABY CHEW TAB] 81 mg PO QDAY 05/20/17 05/20/17 05/19/17 History Hydrochlorothiazide 12.5 mg PO BID 05/20/17 05/20/17 05/19/17 History levETIRAcetam [Keppra TAB] 1,000 mg PO BID #60 tablet 05/23/17 Unknown Rx Active Meds: Active Medications Acetaminophen (Tylenol) 650 mg PO Q4H PRN PRN Reason: For Pain/Fever/Headache Last Admin: 05/21/17 20:33 Dose: 650 mg Aspirin (Aspirin) 325 mg PO QDAY [facility] Last Admin: 05/23/17 09:59 Dose: 325 mg Hydrochlorothiazide (Hctz) 12.5 mg PO BID [facility] Last Admin: 05/23/17 09:59 Dose: 12.5 mg Sodium Chloride (Nacl 0.9% 1000 Ml) 1,000 mls @ 75 mls/hr IV DIRECT [facility] Last Admin: 05/20/17 19:00 Dose: 75 mls/hr Levetiracetam (Keppra) 1,000 mg PO BID [facility] Last Admin: 05/23/17 09:59 Dose: 1,000 mg Lorazepam (Ativan) 1 mg IV Q2H PRN PRN Reason: Seizures Ondansetron HCl (Zofran) 4 mg IV Q6H PRN PRN Reason: Nausea And Vomiting Physical Examination - Vital Signs Vital Signs: Vital Signs Temp Pulse Resp BP Pulse Ox 97.7 F 74 14 129/83 100 05/20/17 10:45 05/20/17 10:45 05/20/17 10:45 05/20/17 10:45 05/20/17 10:45 Results - Laboratory Findings CBC and BMP: 05/20/17 11:47 05/20/17 11:47 Abnormal Lab Findings: Abnormal Labs 05/20/17 05/20/17 05/20/17 11:47 11:47 11:47 RBC 5.29 H Hct 44.6 H MCH 27 L Lymph # 1.1 L Seg Neutrophils % 80.9 H Glucose 106 H Total Creatine Kinase Total Protein 8.6 H Salicylates < 0.3 L 05/20/17 16:11 RBC Hct MCH Lymph # Seg Neutrophils % Glucose Total Creatine Kinase 145 H Total Protein Salicylates
[2017-05-23 13:15] VITALS: BP 161/96
--- NOTE | 2017-05-28 08:04 | Vascular Lab Report ---
CAROTID DUPLEX STUDY: RIGHT PSVEDV CCA [id number] CCA [id number] ICA PROX:7614 ICA MID:8830 ICA DIST:7727 ECA: [id number] VERT: 43 13 LEFT PSVEDV CCA [id number] CCA DIST:9124 ICA PROX:9417 ICA MID:7823 ICA DIST:[id number] ECA: [id number] VERT: 34 9 REASON FOR EXAM: Carotid artery stenosis. COMMENTS ON THE RIGHT: Doppler frequency analysis is consistent with 16 to 49 percent diameter reduction of the internal carotid artery. Minimal amount of plaque is seen. The common carotid artery is patent. The external carotid artery is patent. The vertebral artery has antegrade flow. COMMENTS ON THE LEFT: Doppler frequency analysis is consistent with 16 to 49 percent diameter reduction of the internal carotid artery. Minimal amount of plaque is seen. The common carotid artery is patent. The external carotid artery is patent. The vertebral artery has antegrade flow. IMPRESSION: Less than 50% diameter reduction in the internal carotid arteries bilaterally. Consider repeat carotid artery duplex in 12 months.
== END 2017-05-23 14:50 | DRG 871 ==
LOC: EEVIPCON 10:33 → ED 10:33 → 4A 14:19
PROVIDERS: ADMIT Internal Medicine; ATTEND Internal Medicine
DX: A41.9 Sepsis, unspecified organism (principal); G93.41 Metabolic encephalopathy; G45.9 Transient cerebral ischemic attack, unspecified; N39.0 Urinary tract infection, site not specified; N10 Acute pyelonephritis; G40.909 Epilepsy, unspecified, not intractable, without status epilepticus; Z91.013 Allergy to seafood; Z79.82 Long term (current) use of aspirin; I10 Essential (primary) hypertension; F20.9 Schizophrenia, unspecified
CPT/HCPCS: 36415; 70450; 70551; 80053; 80307; 80320; 81001; 82140; 82550; 82553; 82962; 83735; 84443; 84484; 85025; 93005; 93010; 93880; 95819; 96365; G0480; J1953; J7030